=== PATIENT | female | born 1960 ===

== ENCOUNTER 2024-01-24 05:39 | Day surgery (SDC) | payer OTHER ==
[2024-01-17 11:53] LABS: PH,URINE 7.5 (5.0-8.0); URINE APPEARANCE Cloudy; URINE BILIRRUBIN Negative (NEGATIVE); URINE BLOOD Negative; URINE COLOR Yellow; URINE GLUCOSE Negative (NEGATIVE); URINE KETONE Negative (NEGATIVE); URINE LEUKOCYTE Small; URINE NITRATE Negative; URINE PROTEIN Negative (NEGATIVE); URINE UROBILINOGEN 0.2 E.U./dl
[2024-01-17 11:53] LABS: HEMATOCRIT 42.8 % (36.0-45.00); HEMOGLOBIN 14.8 g/dL (12.0-15.00); MEAN CELL VOLUME 92.4 fL (80.00-100.00); MEAN CORPUSCULAR HEMOGLOBIN 31.9 pg (27.00-32.0); MEAN CORPUSCULAR HGB CONC 34.5 g/dl (32.0-36.0); PLATELET COUNT 191 K/uL (150-450); RED BLOOD COUNT 4.63 M/uL (4.00-6.00); RED CELL DISTRIBUTION WIDTH 12.5 % (11.5-14.5)
[2024-01-17 11:56] LABS: URINE BACTERIA 835.2 uL (0.0-1933); URINE EPITHELIAL CELLS 41.4 uL (0.0-38.8); URINE RBC 17.8 uL (0.0-20.8); URINE WBC 20.2 uL (0.0-23.2)
[2024-01-17 12:24] LABS: ALBUMIN 4.4 gm/dL (3.4-5.0); BILIRUBIN TOTAL 0.78 mg/dL (0.3-1.2); CALCIUM 9.5 mg/dL (8.5-10.1); CREATININE SERUM 0.57 mg/dL (0.55-1.02); GFR 106.78; GLOBULINA 3.3 G/DL (2.4-3.5); POTASSIUM 4.45 mEq/L (3.5-5.1); TOTAL PROTEIN 7.7 gm/dL (6.4-8.2)
[2024-01-17 12:28] LABS: INR 0.98; PARTIAL THROMBOPLASTIN TIME 29.1 SECONDS (22.0-34.0); PROTHROMBIN TIME 10.7 SECONDS (9.0-11.5)
[2024-01-17 12:43] VITALS: BP 139/74
[2024-01-17 12:45] LABS: URINE CAST 0.15 uL (0.0-1.40)
[~2024-01-24] VITALS: Ht 157.5 cm; Wt 56.7 kg
[2024-01-24] MEDS ORDERED: BUPIVACAINE LIPOSOME/PF 266 MG/20 ML VIAL IJ SCH (08:15)
[2024-01-24] MEDS ORDERED: CEFTRIAXONE SODIUM 2,000 MG VIAL IV SCH (08:15)
[2024-01-24] MEDS ORDERED: BUPIVACAINE HCL 30 ML VIAL IJ SCH (08:15)
[2024-01-24] MEDS ORDERED: HEMOSTATIC MATRIX 1 KIT KIT TOP SCH (08:15)
[2024-01-24] MEDS ORDERED: POVIDONE-IODINE 118 ML BOTT TOP SCH (08:15)
[2024-01-24] MEDS ORDERED: DIBUCAINE 30 GM TUBE RECTAL SCH (08:15)
[2024-01-24] MEDS ORDERED: METRONIDAZOLE/SODIUM CHLORIDE 5 MG/ML ML IV SCH (08:30)
[2024-01-24] MEDS ORDERED: INTESTINEX680 M1 PO (10:10)
[2024-01-24] MEDS ORDERED: PERCOCET 5-3251 EACH PO (10:10)
[2024-01-24] MEDS ORDERED: CELECOXIB200 MG PO (10:10)
[2024-01-24] MEDS ORDERED: NEURONTIN300 MG PO (10:10)
== END 2024-01-24 15:10 | disposition home or self-care (01) ==
LOC: CIR.AMB 05:39
PROVIDERS: ATTEND Surgery
DX: K64.3 Fourth degree hemorrhoids (principal); K64.4 Residual hemorrhoidal skin tags; K62.5 Hemorrhage of anus and rectum